=== PATIENT | female | born 1970 | race Caucasian/White ===

== ENCOUNTER → 2017-05-02 | Outpatient (CLI) | payer OTHER ==
[~2017-05-02] MED LIST: ASPIR-TRIN325 M1 PO; HYDROCODON-ACE1 EAC7 PO; ONDANSETRON ODT8 MG PO; PROMETHAZINE HC25 M1 PO; SYNTHROID175 MCG PO
== END | disposition home or self-care (01) ==
LOC: NUC 11:47
DX: R10.9 Unspecified abdominal pain (principal)
CPT/HCPCS: 78227; A9510; J2805